=== PATIENT | female | born 2000 | race Caucasian/White ===

== ENCOUNTER 2021-10-21 17:07 | Observation (INO) | payer OTHER, SELFPAY ==
[2021-10-21 19:46] VITALS: PULSE 82; O2SAT 98
--- NOTE | 2021-10-21 19:58 | OBADM ---
This patient, Dyana Murguia, admitted to the OB room Labor/Delivery/Recovery 107 for observation. Patient/family oriented to hospital policies and general routines including ID bracelet, bed and alarms, visiting hours, pain management, procedures, bathroom and other care routines, personal items, smoking policy, room service/diet, and visiting hours. Patient/Family are encouraged to report perceived risks to care and to ask questions if they do not understand what they are told or what they should do.
[2021-10-21 20:20] LABS: Appearance Urine Clear (Clear); Bilirubin Urine Negative (Negative); Blood Urine Negative (Negative); Color Urine Yellow (Yellow); Glucose Urine UA Negative (Negative); Ketones Urine Negative (Negative); Leukocyte Esterase Ur Trace LEU/UL (Negative); Nitrate Urine Negative (Negative); Protein Urine Negative (Negative); Urobilinogen Urine 0.2 mg/dL (<2.0); pH Urine 6.5 (5.0-9.0)
[2021-10-21 20:27] LABS: Bacteria Urine Trace /hpf; Mucus Urine Rare /lpf; Squamous Epithelial Cell Urine Many /hpf (Few); WBC Urine 0-3 /hpf
[2021-10-21 20:28] LABS: Add Urine Microscopic? YES
--- NOTE | 2021-11-18 08:35 | P.PNOB_ITS ---
OB - Triage/Final Diagnosis Visit Information Comments/Additional reasons for admission: I have assessed the risk for this patient, Dyana Murguia, and determined that she would benefit from observation care. Evaluation Laboratory results: Laboratory Tests 10/21/21 20:03 Urine Color Yellow Urine Appearance Clear Urine pH 6.5 Ur Specific [place] 1.020 Urine Protein Negative Urine Glucose (UA) Negative Urine Ketones Negative Ur Blood (Man) Negative Urine Nitrate Negative Urine Bilirubin Negative Urine Urobilinogen 0.2 Leukocyte Esterase Rfl Trace H Urine RBC 3-5 H Urine WBC 0-3 Ur Squamous Epith Cells Many H Urine Bacteria Trace Urine Mucus Rare Final Diagnosis (1) Back pain affecting : Code(s): O99.891 - Other specified diseases and conditions complicating ; M54.9 - Dorsalgia, unspecified Status: Acute
== END 2021-10-21 20:10 | disposition home or self-care (01) ==
PROVIDERS: Admitting Provider Student in an Organized Health Care Education/Training Program; Visit Provider Student in an Organized Health Care Education/Training Program
DX: O26.899 Other specified pregnancy related conditions, unspecified trimester (principal); M54.9 Dorsalgia, unspecified; Z3A.00 Weeks of gestation of pregnancy not specified
CPT/HCPCS: 81001; G0378; G0379

== ENCOUNTER 2021-11-07 15:07 | Inpatient (IN) | payer OTHER, SELFPAY ==
[2021-11-07] VITALS (75 sets, daily range): BP systolic 86–149; BP diastolic 45–104; PULSE 61–226; TEMP 36.3–36.7; O2SAT 97–100; BMI 35.1
--- NOTE | 2021-11-07 15:58 | LDADM ---
This patient, Dyana Murguia, was admitted to Labor/Delivery/Recovery 106 on 11/07/21 at 15:07. Plans for labor, pain management and were discussed with patient. Patient/family oriented to hospital policies and general routines including ID bracelet, bed and alarms, visiting hours, pain management, procedures, bathroom and other care routines, personal items, smoking policy, room service/diet and guest tray routines, infant security routines, and visiting hours. Patient/Family are encouraged to report perceived risks to care and to ask questions if they do not understand what they are told or what they should do. See OBIX for further documentation.
[2021-11-07 16:14] LABS: Basophils Percent Auto 0.2 % (0.2-1.2); Eosinophils Absolute Auto 0.3 K/mm3 (0-0.3); Eosinophils Percent Auto 2.8 % (0-4.4); Hematocrit 30.7 % (37.0-47.0); Hemoglobin 9.8 g/dL (12.0-15.0); Immature Granulocyte Absolute 0.03 K/mm3 (0.00-0.031); Immature Granulocyte Percent A 0.3 % (0-0.5); Lymphocytes Absolute Auto 1.51 K/mm3 (0.9-3.2); Lymphocytes Percent Auto 17.1 % (18.3-44.2); Mean Corpuscular HGB Conc 31.9 g/dl (32-36); Mean Corpuscular Hemoglobin 25.9 pg (26-34); Mean Corpuscular Volume 81.2 fl (80-100); Mean Platelet Volume 11.9 fl (7.4-10.4); Monocytes Absolute Auto 0.7 K/mm3 (0.1-0.6); Monocytes Percent Auto 7.6 % (2.6-8.5); Neutrophils Absolute Auto 6.4 K/mm3 (1.3-6.7); Platelet Count Result 230 k/mm3 (150-375); Red Blood Count 3.78 M/mm3 (4.2-5.4); Red Cell Distribution Width 13.6 % (11.5-14.5); White Blood Count 8.9 K/mm3 (4.5-10.0)
[2021-11-07 16:25] LABS: Alanine Aminotransferase 15 U/L (6-35); Albumin Level 3.5 g/dL (3.5-5.1); Alkaline Phosphatase 117 U/L (38-126); Anion Gap 2 mmol/L (8-16); Aspartate Amino Transferase 20 U/L (14-36); Bilirubin,Total 0.2 mg/dL (0.2-1.3); Blood Urea Nitrogen 10 mg/dL (7-17); Calcium 8.8 mg/dL (8.4-10.2); Carbon Dioxide 23 mmol/L (22-30); Chloride 108 mmol/L (98-107); Estimated CRCL calculation 116 ml/min; Estimated Glomerular Filt Rate > 60; Glucose 101 mg/dL (65-110); Potassium 3.7 mmol/L (3.4-5.0); Sodium 133 mmol/L (137-145)
[2021-11-07 16:37] LABS: Uric Acid 5.1 mg/dL (2.5-7.5)
[2021-11-07] MEDS: LACTATED RINGERS 1,000 ML 125 ML IV CONT ×2 (16:51→22:02)
[2021-11-07] MEDS: OXYTOCIN 30 UNITS/NS 500 ML 30 UNITS/500 ML BAG 6 UNITS IV CONT (16:52)
--- NOTE | 2021-11-07 17:39 | WPDANESEPP ---
Anes - Eval Pre Procedure Procedure: labor epidural Date/Time: 11/07/21 17:39 Surgeon: najma Pre Op Diagnosis: Labor Patient Data Age: 21 Gender: F Height: 1.6 m Weight: 90 kg Last Vital Signs Temp 36.7 C 11/07/21 16:52 Pulse 100 11/07/21 17:31 BP 118/51 L 11/07/21 17:31 O2 Del Method Room Air 11/07/21 15:57 Allergies Allergy/AdvReac Type Severity Reaction Status Date / Time No Known Allergies Allergy Unknown Verified 11/02/21 09:46 Home Medications Medication Instructions Recorded Confirmed Type albuterol sulfate 90 mcg/actuation 1 puff inhalation Q4H PRN 04/29/21 11/07/21 Rx aerosol inhaler shortness of breath or wheezing #6.7 grams prenat.vits,kemar,[id number] 1 tablet PO DAILY 04/29/21 11/07/21 History Laboratory Tests 11/07/21 11/07/21 11/07/21 15:55 15:55 15:55 WBC 8.9 K/mm3 K/mm3 (4.5-10.0) RBC 3.78 M/mm3 L M/mm3 (4.2-5.4) Hgb 9.8 g/dL L g/dL (12.0-15.0) Hct 30.7 % L % (37.0-47.0) MCV 81.2 fl fl (80-100) MCH 25.9 pg L pg (26-34) MCHC 31.9 g/dl L g/dl (32-36) RDW 13.6 % % (11.5-14.5) Plt Count 230 k/mm3 k/mm3 (150-375) MPV 11.9 fl H fl (7.4-10.4) Immature Gran % (Auto) 0.3 % % (0-0.5) Neut % (Auto) 72.0 % % (45.5-73.1) Lymph % (Auto) 17.1 % L % (18.3-44.2) Perry % (Auto) 7.6 % % (2.6-8.5) Eos % (Auto) 2.8 % % (0-4.4) Baso % (Auto) 0.2 % % (0.2-1.2) Lymph # (Auto) 1.51 K/mm3 K/mm3 (0.9-3.2) Perry # (Auto) 0.7 K/mm3 H K/mm3 (0.1-0.6) Eos # (Auto) 0.3 K/mm3 K/mm3 (0-0.3) Baso # (Auto) 0.0 K/mm3 K/mm3 (0.0-0.1) Abs Immat Gran (auto) 0.03 K/mm3 K/mm3 (0.00-0.031) Absolute Neuts (auto) 6.4 K/mm3 K/mm3 (1.3-6.7) Absolute Nucleated RBC 0.0 K/mm3 K/mm3 (0.0-0.012) Nucleated RBC % 0.0 % % (0.0-0.2) Sodium Potassium Chloride Carbon Dioxide Anion Gap BUN Creatinine Estim Creat Clear Calc Estimated GFR Glucose Uric Acid 5.1 mg/dL mg/dL (2.5-7.5) Calcium Total Bilirubin AST ALT Alkaline Phosphatase Total Protein Albumin RPR Pending Blood Type Antibody Screen 11/07/21 11/07/21 15:55 15:55 WBC RBC Hgb Hct MCV MCH MCHC RDW Plt Count MPV Immature Gran % (Auto) Neut % (Auto) Lymph % (Auto) Perry % (Auto) Eos % (Auto) Baso % (Auto) Lymph # (Auto) Perry # (Auto) Eos # (Auto) Baso # (Auto) Abs Immat Gran (auto) Absolute Neuts (auto) Absolute Nucleated RBC Nucleated RBC % Sodium 133 mmol/L L mmol/L (137-145) Potassium 3.7 mmol/L mmol/L (3.4-5.0) Chloride 108 mmol/L H mmol/L (98-107) Carbon Dioxide 23 mmol/L mmol/L (22-30) Anion Gap 2 mmol/L L mmol/L (8-16) BUN 10 mg/dL mg/dL (7-17) Creatinine 0.70 mg/dL mg/dL (0.7-1.0) Estim Creat Clear Calc 116 ml/min ml/min Estimated GFR > 60 (59 - ) Glucose 101 mg/dL mg/dL (65-110) Uric Acid Calcium 8.8 mg/dL mg/dL (8.4-10.2) Total Bilirubin 0.2 mg/dL mg/dL (0.2-1.3) AST 20 U/L U/L (14-36) ALT 15 U/L U/L (6-35) Alkaline Phosphatase 117 U/L U/L (38-126) Total Protein 7.0 g/dL g/dL (6.3-8.2) Albumin 3.5 g/dL g/dL (3.5-5.1) RPR Blood Type O Positive Antibody Screen Negative Patient hx anesthesia probl
[2021-11-07] MEDS: fentaNYL CITRATE INJ (*CRX) 100 MCG/2 ML VIAL 50 MCG IV PUSH (21:41)
--- NOTE | 2021-11-07 23:52 | PM.IMHP ---
H&P: HPI History of Present Illness Date/Time: 11/07/21 23:52 Chief Complaint: Leakage of fluid Narrative: Patient is a currently 39w gestation. LMP uncertain. Patient is dated by outside US at 7w gestation with KRYSTIAN 11/14/21. Patient reported leakage of fluid at approx. 2:00 p.m. Denies any contractions or vaginal bleeding. Reports good movement. Upon arrival to L&D, patient was noted to be grossly ruptured. Decision was made to admit to L&D. Review of Systems Review of Systems: All systems reviewed & are unremarkable except as noted in HPI and below Constitutional: Constitutional: Reports as per HPI and Reports no additional constitutional complaints Eyes: Eyes: Reports as per HPI and Reports no additional eye complaints ENT: Reports system reviewed and no additional complaints, except as documented and Reports as per HPI Cardiovascular: Cardiovascular: Reports as per HPI and Reports no additional cardiovascular complaints Respiratory: Respiratory: Reports as per HPI and Reports no additional respiratory complaints Gastrointestinal: Gastrointestinal: Reports as per HPI and Reports no additional gastrointestinal complaints Genitourinary: Genitourinary: Reports no additional female genitourinary complaints and Reports as per HPI Musculoskeletal: Musculoskeletal: Reports no additional musculoskeletal complaints and Reports as per HPI Integumentary/Breasts: Skin/Breast: Reports system reviewed and no additional complaints, except as docu and Reports as per HPI Neurologic: Reports system reviewed and no additional complaints, except as documented and Reports as per HPI Psychiatric: Psychiatric: Reports no additional psychiatric complaints and Reports as per HPI Endocrine: Endocrine: Reports no additional endocrine complaints and Reports as per HPI Hematologic/Lymphatic: Hematologic/Lymphatic: Reports no additional hematologic/lymphatic complaints and Reports as per HPI Allergic/Immunologic: Allergic/Immunologic: Reports no additional allergic/immunologic complaints and Reports as per HPI PMF Past Medical History Medical History History of 1 Mood disorder Family History Family History Other Adopted Social History Social History Smoking status: Never smoker Tobacco type: e-cigarettes/vaping Alcohol intake: former Alcohol use details: Socially on the weekends Substance use: current Substance use type: marijuana Last use: 10/08/21 Spiritual care concerns: No Meds Home Medications and Allergies Home Medications Medication Instructions Recorded Confirmed Type albuterol sulfate 90 mcg/actuation 1 puff inhalation Q4H PRN 04/29/21 11/07/21 Rx aerosol inhaler shortness of breath or wheezing #6.7 grams prenat.vits,kemar,[id number]-[id number] 1 tablet PO DAILY 04/29/21 11/07/21 History Allergies Allergy/AdvReac Type Severity Reaction Status Date / Time No Known Allergies Allergy Unknown Verified 11/02/21 09:46 Vital Signs Vital Signs - 24 hr 11/07/21 15:46 11/07/21 16:01 11/07/21 16:16 Temperature Pulse Rate 101 H 94 83 Blood Pressure 149/82 H 131/66 127/68 Pulse Oximetry Oxygen Delivery 11/07/21 16:31 11/07/21 16:46 11/07/21 17:01 Temperature Pulse Rate 110 H 95 Blood Pressure 131/104 H 114/69 119/55 L Pulse Oximetry Oxygen Delivery 11/07/21 16:52 11/07/21 17:16 11/07/21 17:31 Temperature 36.7 C Pulse Rate 95 100 Blood Pressure 120/64 118/51 L Pulse Oximetry Oxygen Delivery 11/07/21 17:46 11/07/21 16:00 11/07/21 18:01 Temperature 36.6 C Pulse Rate 82 102 H Blood Pressure 111/60 107/64 Pulse Oximetry Oxygen Delivery 11/07/21 18:16 11/07/21 18:32 11/07/21 18:46 Temperature Pulse Rate 122 H 88 97 Blood Pressure 102/78 108/60 105
--- NOTE | 2021-11-07 23:52 | WPDHPUPDATE1 ---
History and Physical Update Update Date/Time: 11/07/21 23:52 History and Physical has been reviewed, including an updated exam of the patient. There are NO changes in the patient's condition. Risks, benefits, and alternatives have been discussed and questions answered. Patient agrees to proceed with procedure.
--- NOTE | 2021-11-07 23:52 | PM.OBPNLAB ---
Pain Control Date/time seen: 11/07/21 23:52 Patient doing well. Comfortable s/p epidural. SVE -/-2. Forebag ruptured. Clear fluid noted. EFM category 1. Continue pitocin. Continue EFM and toco.
[2021-11-08] VITALS (126 sets, daily range): BP systolic 89–140; BP diastolic 45–107; PULSE 57–114; RESP 16–18; TEMP 36.2–37; O2SAT 95–100
[2021-11-08] MEDS: SODIUM CHLORIDE 0.9% IV 300 ML 600 ML I-UTERINE (01:27)
[2021-11-08] MEDS: OXYTOCIN 30 UNITS/NS 500 ML 30 UNITS/500 ML BAG 125 UNITS IV CONT (07:09)
--- NOTE | 2021-11-08 07:14 | PM.OBPRVD ---
OB - Delivery Note Procedure Delivery date: 11/08/21 Procedure: The patient is a 21-year-old now who presented to labor and delivery on the afternoon of 11/07/2021 at 39 weeks gestation with PROM. Patient reported leakage of clear fluid at approximately 2:00 p.m. Upon arrival to labor and delivery, patient was noted to be ruptured. Decision was made to admit patient for induction of labor. Initial cervical exam was approximately 1 cm dilated. Induction labor was started with Pitocin. Pitocin was slowly titrated throughout the remainder of the afternoon and evening. Patient became increasingly uncomfortable and requested an epidural for pain management which was placed without difficulty. A forebag was noted and artificially ruptured. Shortly afterwards, variable decelerations were noted on EFM. An IUPC was placed and an amnioinfusion was started. tracing improved. Pitocin was continued and patient was noted to be fully dilated at 5:35 a.m. Patient was encouraged to push and found to be pushing well. She was prepped and draped for delivery. At 6:42 a.m., patient delivered head atraumatically and without difficulty in OSVALDO presentation. Occiput restituted to maternal right side. A nuchal cord x1 was noted, however, unable to be reduced. With subsequent push, the infant's neck, shoulders, and rest of body delivered without difficulty. Nuchal cord was reduced. Infant's nose and mouth were suctioned with bulb suction. Infant was placed on maternal abdomen where care was assumed by awaiting nursing staff. was crying spontaneously. Delayed cord clamping was performed for approximately 60 seconds. The cord was clamped and cut. A segment of cord was collected for cord gases. Cord blood was collected. The placenta was delivered spontaneously and intact. Uterine fundus was noted to be firm with massage. On inspection, no lacerations were noted. Estimated blood loss for entire delivery was 150 cc. The infant was a live-born male infant, Apgars 8 and 9, weighing 7 lbs. 15 oz. Both mother and baby doing well at end of delivery. Induction method: Per Pitocin Protocol Delivery monitor: External FHT, External Uterine and Internal Uterine Route of delivery: Laceration Description: None Specimen: Yes (cord blood and cord gases) Quantitative Blood Loss (ml): 150 Anesthesia type: Epidural Disposition: Floor Complications: No immediate complications Baby Date of : 11/08/21 Time of : 06:42 Weeks of gestation at delivery: 39 (39.1) Infant gender: Male Weight (pounds): 7 Weight (ounces): 15 presentation: vertex position: Right Occiput Anterior Placenta delivery description: Spontaneous Cord Vessel Description: 3 Vessels, Nuchal Cord (x1) and Delayed Cord Clamping (x60s) score one minute: 8 score five minutes: 9 AMG Delivery Billing Delivery Delivery: Delivery Charge
[2021-11-08] MEDS: IBUPROFEN 600 MG TABLET PO ×3 (09:06→21:37)
[2021-11-08] MEDS: POLYSACCHARIDE IRON COMPLEX 150 MG CAPSULE PO ×2 (10:03→17:49)
[2021-11-08] MEDS: DOCUSATE SODIUM 100 MG CAPSULE PO ×2 (10:03→17:49)
[2021-11-08] MEDS: MULTIVIT/MIN/PREN/FOL AC/IRON TABLET 1 TAB PO (10:03)
--- NOTE | 2021-11-08 14:05 | PC.NURSE ---
[id number] Introductions were made, then consulted with patient to assess needs related to . Mother led the conversation with her experience feeding her so far. Visitor is holding infant and another visitor verbalizes support to mother. Encouraged understanding of the benefits of skin to skin (unwrapping infant and placing vertically on her chest), responsive feeding and how to watch for early feeding signs, frequency of feeding on demand about every 8-12 times in 24 hours (every 2-3 hours), milk production, duration of feeding, signs of adequate intake/output and how to record on the feeding sheet. Breast pump provided earlier from primary RN. Instructions given on cleaning, care, usage, that there should be no pain, pumping schedule for milk production, collection, and storage of human milk. Parents are encouraged to record pumping schedule on the feeding sheet. Patient was assessed for correct placement, flange size, to pump for comfort and nipple stretching/stimulation for adequate milk production every 3 hours (8 times in 24 hours). Resources used to facilitate learning were used with the mom and baby guide. Mother voiced understanding of responsive feedings, stimulating with skin to skin, talking to infant to encourage if it has been 2 -3 hours since the start of the last , to call if does not latch or there is discomfort with . Mother is unsure if she wants to work on latching to breast and states she may just pump and feed. Reported to the primary RN.
[2021-11-08 14:41] LABS: Rapid Plasma Reagin Non-Reactive (NonReactive)
[2021-11-08] MEDS: ACETAMINOPHEN 325 MG TABLET 650 MG PO (17:11)
[2021-11-09] VITALS: BP 111/50; PULSE 74; RESP 16; TEMP 36.7
[2021-11-09 04:00] VITALS: BP 134/84; PULSE 84; RESP 18; TEMP 36.6
[2021-11-09] MEDS: IBUPROFEN 600 MG TABLET PO ×2 (05:06→13:02)
[2021-11-09 05:24] LABS: Hematocrit 28.9 % (37.0-47.0); Hemoglobin 9.5 g/dL (12.0-15.0)
[2021-11-09 08:00] VITALS: BP 124/65; PULSE 70; RESP 16; TEMP 36.5; O2SAT 99
[2021-11-09 09:00] VITALS: PULSE 70; RESP 16; O2SAT 99
--- NOTE | 2021-11-09 09:01 | PM.OBPNVD ---
OB - PN: Subj Subjective Date/time seen: 11/09/21 09:01 Patient doing well this AM. Reports mild cramping. Pain reasonably controlled with medication. Minimal lochia. Ambulating well. Voiding without difficulty. OB - PN: Obj Data Labs CBC & Chem 7: 11/09/21 05:05 11/07/21 15:55 Labs: Laboratory Results - last 24 hr 11/07/21 11/09/21 15:55 05:05 Hgb 9.5 L Hct 28.9 L RPR Non-reactive OB - PN A/P Assessment and Plan (1) Normal spontaneous vaginal delivery: Code(s): O80 - Encounter for full-term uncomplicated delivery Status: Acute Assessment and Plan: PPD#1 doing well continue routine care dc home today in stable condition, pending infant clearance emergency precautions reviewed f/u in office in 4-6 weeks for visit Time Spent With Patient Time: Total time spent is greater than 50% in coordination of care (as documented) at patient's floor/unit and/or counseling patient: Exam Const: General: cooperative, healthy appearing, comfortable and no acute distress GI: Inspection: non-distended GI Palp: Yes Soft to palpation and No Tenderness to palpation present (GI) Other: fundus firm below umbilicus Extrem: Right lower extremity: no edema Left lower extremity: no edema Other: no calf tenderness
--- NOTE | 2021-11-09 09:04 | PM.OBDSVD ---
DS: Admitting Diagnosis Discharge Date 11/09/21 Admitting Diagnosis IUP at 39w PROM OB - DS: Summary OB Procedures : None OB Procedures Intrapartum: Spontaneous Vag Delivery OB Procedures: : None Time Spent with Patient Time attestation: Total time spent providing and/or coordinating discharge services: DS: Data Data Completed and Pending Labs on day of discharge: Labs from last 24 hours 11/09/21 11/07/21 05:05 15:55 Hgb 9.5 L Hct 28.9 L RPR Non-reactive Discharge Plan Discharge Attending physician on discharge: Yadira Lucio Discharging Clinician: Yadira Lucio Anticipated Discharge Date/Time: 11/09/21 09:04 Patient Disposition: Home, Self-Care Activity: as tolerated and pelvic rest Diet: regular Discharge Instructions: Call office ([phone]) to schedule a visit in 4-6 weeks. You may take Ibuprofen 600mg every 6 hours as needed for pain. Pain medication may make you constipated. It may be helpful to take an [id number]-qivefqa stool softener, such as Colace and/or Senokot, along with the pain medication to help lessen constipation. Call office or go to ED for pain not controlled with medication, headache, chest pain, shortness of breath, fever, chills, persistent nausea or vomiting, severe abdominal pain, heavy vaginal bleeding >2 pads/hour, foul vaginal discharge or odor, or problems with your breasts. Patient Instructions: Antibiotic Form Stand Alone Forms: General Discharge Information Follow-up/Referrals: Yadira Lucio MD [Physician] - Discharge Medications: Continued prenat.vits,kemar,[id number]-puoir Tablet 1 tablet PO DAILY albuterol sulfate 90 mcg/actuation HFA aerosol inhaler 1 puff inhalation Q4H PRN (Reason: shortness of breath or wheezing) Qty: 6.7 0RF Date of admission: 11/07/21 15:07 Primary Care Provider: PHYSICIAN,SENIOR ELECTRONICS DESIGN ENGINEER Admitting Provider: Yadira Lucio Attending physician on admission: Yadira Lucio Condition: Stable
[2021-11-09] MEDS: POLYSACCHARIDE IRON COMPLEX 150 MG CAPSULE PO (09:50)
[2021-11-09] MEDS: MULTIVIT/MIN/PREN/FOL AC/IRON TABLET 1 TAB PO (09:50)
[2021-11-09] MEDS: DOCUSATE SODIUM 100 MG CAPSULE PO (09:50)
[2021-11-09] MEDS: ACETAMINOPHEN 325 MG TABLET 650 MG PO (09:50)
--- NOTE | 2021-11-09 10:25 | WPDANLDPN2 ---
Anes-Prog Note L&D Date/Time: 11/09/21 10:25 Comfortable throughout: labor and delivery Neuraxial method: epidural Epidural/Spinal procedure site: clean & non-tender Neuro status: Neuro function grossly intact. Cardiovascular status: normal Respiratory status: normal Airway patency: baseline Mental status: baseline Post-Op hydration status: normal Vital Signs: Last Vital Signs Temp 36.5 C 11/09/21 08:00 Pulse 70 11/09/21 08:00 Resp 16 11/09/21 08:00 BP 124/65 11/09/21 08:00 Pulse Ox 99 11/09/21 08:00 O2 Del Method Room Air 11/09/21 04:00 Pain score (VAS): 05/31 I/O: Intake & Output 11/08/21 11/09/21 11/09/21 23:59 07:59 15:59 Intake Total 500 350 Balance 500 350 Patient feedback: Patient satisfied with anesthetic care.
--- NOTE | 2021-11-09 14:25 | PC.NURSE ---
Patient viewed the discharge video Mother & Baby Care, The First Two Weeks . Patient was given the opportunity and encouraged to ask questions. Patient verbalized understanding of information shared and has been given the mother/baby guide for home reference.
--- NOTE | 2021-11-09 14:47 | PCCCNOTE ---
Care Coordination Consult: Met with pt. today. This is pt.'s first child. FOB is Kam. Pt. has all necessary supplies for baby at home including a crib, carseat, clothing, diapers, formula etc. Pt. has a supportive family. Pt. reports she has already applied for WIC services, but was agreeable to resources to assist if needed. Pt. denies any further case management needs. [facility] will transport pt. home this afternoon.
[2021-11-10 08:50] VITALS: BP 121/71; PULSE 77; RESP 20; TEMP 36.6; O2SAT 99
== END 2021-11-09 15:22 | disposition home or self-care (01) | DRG 560 ==
LOC: ANHLDR 15:45 → ANHOB2 11-08 09:36
PROVIDERS: Admitting Provider Obstetrics & Gynecology; Visit Provider Student in an Organized Health Care Education/Training Program
DX: O42.02 Full-term premature rupture of membranes, onset of labor within 24 hours of rupture (principal); Z37.0 Single live birth; Z3A.39 39 weeks gestation of pregnancy; O69.81X0 Labor and delivery complicated by cord around neck, without compression, not applicable or unspecified; O36.8330 Maternal care for abnormalities of the fetal heart rate or rhythm, third trimester, not applicable or unspecified
CPT/HCPCS: 36415; 80053; 84112; 84550; 85014; 85018; 85025; 86592; 86850; 86900; 86901; A9270; J2590; J2795; J3010; J7030; J7120

== ENCOUNTER 2022-06-28 18:32 | Emergency (ER) | payer OTHER, SELFPAY ==
[2022-06-28 18:40] VITALS: BP 135/72; PULSE 89; RESP 16; TEMP 37.3; O2SAT 99
--- NOTE | 2022-06-28 19:02 | ED.URI ---
HPI - URI/Sore Throat General Chief Complaint: Upper Respiratory Infection Stated Complaint: sore throat History of Present Illness HPI Narrative: 21 y/o female presented for c/o sore throat, sinus drainage, and fever/chills. Onset 10 days. Denies shortness of breath, wheezing, nausea, vomiting, diarrhea. She has not taking anything for symptoms. She denies sick contacts. Related Data Allergies Allergy/AdvReac Type Severity Reaction Status Date / Time No Known Allergies Allergy Unknown Verified 06/28/22 18:36 Review of Systems Review of Systems: CONSTITUTIONAL: Denies body aches EYES: Denies visual changes, redness, or discharge. ENT: Denies otalgia. CARDIOVASCULAR: Denies chest pain, palpitations, or edema. RESPIRATORY: Denies dyspnea. GASTROINTESTINAL: Denies abdominal pain, nausea, vomiting, or diarrhea. SKIN: Denies rash, itching, or wounds. MUSCULOSKELETAL: Denies back pain, joint pain, or myalgia. NEUROLOGIC: Denies headache PMFSH Past Medical History Medical History History of 1 Mood disorder Normal spontaneous vaginal delivery Family History Family History Other Adopted Social History Social History Smoking status: Never smoker Tobacco type: e-cigarettes/vaping Alcohol intake: former Alcohol use details: Socially on the weekends Substance use: current Substance use type: marijuana Last use: 10/08/21 Spiritual care concerns: No Exam Narrative: GENERAL: mildly Ill-appearing, no acute distress. EYES: conjunctivae clear ENT: Mucous membranes moist. TM pearly hernandez with normal light reflex bilaterally; no tragal tenderness. Oropharynx erythematous without lesions. Tonsils enlarged 2+ and without exudate. No drooling, no hoarseness, no trismus, uvula midline. No tripod positioning, hot potato voice, or soft palate swelling. NECK: Supple. No lymphadenopathy CHEST: Clear to auscultation, breath sounds equal. No respiratory distress, speaks in full sentences. HEART: Regular rate and rhythm. No murmur heard. SKIN: Warm, dry, no rash. NEURO: Alert and oriented x3. Course Course Emergency Course: Patient is aware of diagnosis, understands and agrees to treatment plan. Anticipatory guidance given. Patient agrees to follow-up as directed and is aware of reasons to seek care at the emergency department. Portions of this record may have been created with voice recognition software Level of Care: Express Care Visit Vital Signs Vital signs: Vital Signs Temperature 99.2 F 06/28/22 18:40 Pulse Rate 89 06/28/22 18:40 Respiratory Rate 16 06/28/22 18:40 Blood Pressure 135/72 06/28/22 18:40 Pulse Oximetry 99 06/28/22 18:40 Oxygen Delivery Room Air 06/28/22 18:40 Temperature 99.2 F 06/28/22 18:40 Pulse Rate 89 06/28/22 18:40 Respiratory Rate 16 06/28/22 18:40 Blood Pressure 135/72 06/28/22 18:40 Pulse Oximetry 99 06/28/22 18:40 Oxygen Delivery Room Air 06/28/22 18:40 MDM - URI/Sore Throat MDM Narrative Medical decision making narrative: strep result reviewed with pt. Advise supportive treatments. Patient is appropriate for outpatient treatment and follow-up. Differential Diagnosis Differential diagnosis: Likely upper respiratory infection, viral infection and pharyngitis Discharge Plan Discharge Clinical Impression: Pharyngitis Patient Disposition: Home, Self-Care Condition: Stable Instructions: Antibiotic Form, Pharyngitis (ED) Additional Instructions: Rapid strep swab was negative today You will be notified in a few days if the culture comes back positive for strep, and appropriate antibiotics will be called in at that time. if symptoms are due to a viral illness, it is not treated with antibiotics. Viral symptoms can be present for u
== END 2022-06-28 19:17 | disposition home or self-care (01) ==
PROVIDERS: Emergency Provider Nurse Practitioner Family
DX: J02.9 Acute pharyngitis, unspecified (principal)
CPT/HCPCS: 87081; 87147; 87880; 99213; G0463

== ENCOUNTER 2022-08-17 02:51 | Emergency (ER) | payer OTHER, SELFPAY ==
[2022-08-17 02:53] VITALS: BP 142/85; PULSE 128; RESP 24; TEMP 36.7; O2SAT 99
--- NOTE | 2022-08-17 03:37 | PC.NURSE ---
patient stated she does not think she should have to wait to get help and said she was going someplace else
== END 2022-08-17 03:47 | disposition left against medical advice (07) ==
PROVIDERS: PCP Family Medicine
DX: R06.02 Shortness of breath (principal)
CPT/HCPCS: 99199

== ENCOUNTER 2023-03-01 13:00 | Emergency (ER) | payer OTHER, SELFPAY ==
[2023-03-01 13:13] VITALS: BP 138/84; PULSE 116; RESP 18; TEMP 37.3; O2SAT 96
--- NOTE | 2023-03-01 13:32 | ED.URI ---
HPI - URI/Sore Throat General Chief Complaint: Upper Respiratory Infection Stated Complaint: SOB/Ear Irritation Time Seen by Provider: 03/01/23 13:32 Source: patient Mode of arrival: ambulatory Limitations: no limitations History of Present Illness HPI Narrative: 22-year-old female presents with complaint of right ear pain for 3 days. Patient also reports nasal congestion, runny nose, postnasal drainage, cough, shortness of breath. Patient reports history of asthma. Has been using her inhaler as prescribed. Last time her asthma is bothering her she was given prednisone and it helped. Has appointment with sheriff's detective in the next month to further evaluate her asthma treatment. All systems reviewed and negative except as noted above. Related Data Allergies Allergy/AdvReac Type Severity Reaction Status Date / Time No Known Allergies Allergy Unknown Verified 03/01/23 13:17 Review of Systems Review of Systems: CONSTITUTIONAL: Denies fever, chills, or sweats. Reports fatigue. EYES: Denies visual changes, redness, or discharge. ENT: Reports rhinorrhea, congestion, sore throat, right ear pain. CARDIOVASCULAR: Denies chest pain, palpitations, or edema. RESPIRATORY: Reports cough and dyspnea. GASTROINTESTINAL: Denies abdominal pain, nausea, vomiting, or diarrhea. GENITOURINARY: Denies dysuria or hematuria. SKIN: Denies rash or itching. MUSCULOSKELETAL: Denies back pain, joint pain, or myalgia. NEUROLOGIC: Denies headache, numbness, or weakness. PSYCHIATRIC: Denies anxiety or depression. All other systems reviewed are negative, except as documented in HPI. [facility] Past Medical History Medical History History of 1 Mood disorder Normal spontaneous vaginal delivery Family History Family History Other Adopted Social History Social History Smoking status: Never smoker Tobacco type: e-cigarettes/vaping Alcohol intake: former Alcohol use details: Socially on the weekends Substance use: current Substance use type: marijuana Last use: 10/08/21 Spiritual care concerns: No Comments At time of signature, agree with nursing past medical, surgical, social and family history. There is no relevant family history pertinent to the presenting complaint. Exam Narrative: GENERAL: This is a well-nourished, well-developed patient, in no apparent distress. HEAD: normocephalic, atraumatic. EYES: PERRL. Sclera clear/white. Vision is grossly intact. EARS: External ears normal, auditory canals clear and without drainage, TMs normal without perforation. Hearing grossly intact. NOSE: External nose normal with clear nasal drainage, erythema and swelling to both nares. THROAT: Mucous membranes moist, Clear postnasal drainage. NECK: Neck supple, non-tender without lymphadenopathy, masses or thyromegaly. CARDIOVASCULAR: Regular rate and rhythm without murmurs, gallops, or rubs. RESPIRATORY: Mild expiratory wheeze throughout all lung [place]. No rales, or rhonchi. SKIN: warm, Dry, intact with no suspicious lesions or rash, good texture and turgor. NEURO: awake, alert, and oriented to person, place and time. There were no obvious focal neurologic abnormalities. EXTREMITIES: No joint tenderness, effusion, or edema noted. Course Course Level of Care: Express Care Visit Vital Signs Vital signs: Vital Signs Temperature 37.3 C 03/01/23 13:13 Pulse Rate 116 H 03/01/23 13:13 Respiratory Rate 18 03/01/23 13:13 Blood Pressure 138/84 03/01/23 13:13 Pulse Oximetry 96 03/01/23 13:13 Oxygen Delivery Room Air 03/01/23 13:13 Temperature 37.3 C 03/01/23 13:13 Pulse Rate 116 H 03/01/23 13:13 Respiratory Rate 18 03/01/23 13:13 Blood Pressure 138/84 03/01/23 13:13 Pulse Oximetry 96 03/01/23 13:13 Oxygen Del
== END 2023-03-01 13:48 | disposition home or self-care (01) ==
PROVIDERS: Emergency Provider Nurse Practitioner Family; PCP Nurse Practitioner Family
DX: H66.91 Otitis media, unspecified, right ear (principal); J45.901 Unspecified asthma with (acute) exacerbation
CPT/HCPCS: 99213; G0463

== ENCOUNTER 2024-02-06 10:37 | Emergency (ER) | payer OTHER, SELFPAY ==
[2024-02-06 10:46] VITALS: BP 131/84; PULSE 91; RESP 16; TEMP 37.1; O2SAT 99
--- NOTE | 2024-02-06 10:51 | ED.NAVMDI ---
HPI - Nausea/Vomiting/Diarrhea General Chief complaint: Nausea/Vomiting/Diarrhea Stated complaint: Sinus Time Seen by Provider: 02/06/24 10:50 Source: patient Mode of arrival: ambulatory Limitations: no limitations History of Present Illness HPI Narrative: Aguilar Saleem is a 23-year-old female patient presenting to the clinic today with complaints nausea, vomiting, and diarrhea. She reports that symptoms started yesterday after eating some chicken strips and Danish fries. She reports she had 3 episodes of diarrhea last night. She had 1 episode of vomiting this morning. States she vomited at work so her boss sent her home and stated that she needed a work note to come back. She denies any fever, chills, body aches, or blood in her stool. States that she only has abdominal cramping prior to having diarrhea. Last menstrual period was this week Related Data Allergies Allergy/AdvReac Type Severity Reaction Status Date / Time No Known Allergies Allergy Unknown Verified 03/01/23 13:17 Review of Systems Review of Systems: Pertinent positives per HPI. Patient denies any fever, chills, rash, headache, visual changes, dizziness, cough, runny nose, sore throat, shortness of breath, chest pain, palpitations, constipation, or any urinary issues. [facility] Past Medical History Medical History History of 1 Mood disorder Normal spontaneous vaginal delivery Family History Family History Other Adopted Social History Social History Smoking status: Never smoker Tobacco type: e-cigarettes/vaping Alcohol intake: former Alcohol use details: Socially on the weekends Substance use: current Substance use type: marijuana Last use: 10/08/21 Spiritual care concerns: No Comments At the time of my signature, I reviewed and agree with the nursing past medical, surgical, social, and family history. There is no relevant family history pertinent to the patient complaint. Exam Narrative: General: Well-developed, well nourished, in no apparent distress. Head: Normocephalic, atraumatic. Cardio: Regular rate and rhythm, s1 and s2 normal, no murmur appreciated. Resp: Clear to auscultation bilaterally, no rhonchi, rales, wheezing or rubs. Abdomen: Soft, pliable, bowel sounds present in all quadrants, mild tender to palpation over the lower abdomen, no organomegly, no CVAT tenderness. Course Course Emergency Course: Portions of this record may have been created with voice recognition software. Level of Care: Express Care Visit Vital Signs Vital signs: Vital Signs Temperature 37.1 C 02/06/24 10:46 Pulse Rate 91 02/06/24 10:46 Respiratory Rate 16 02/06/24 10:46 Blood Pressure 131/84 02/06/24 10:46 Pulse Oximetry 99 02/06/24 10:46 Oxygen Delivery Room Air 02/06/24 10:46 Temperature 37.1 C 02/06/24 10:46 Pulse Rate 91 02/06/24 10:46 Respiratory Rate 16 02/06/24 10:46 Blood Pressure 131/84 02/06/24 10:46 Pulse Oximetry 99 02/06/24 10:46 Oxygen Delivery Room Air 02/06/24 10:46 Vital signs reviewed MDM - Nausea/Vomiting/Diarrhea MDM Narrative Medical decision making narrative: At the time of visit patient is resting comfortably on the exam table. Patient appears to be nontoxic. Plan: I suspect patient has gastroenteritis. Prescription for Zofran was sent to the pharmacy. Note was given. Supportive measures were discussed with the patient and they voiced understanding discharge instructions and agrees to treatment plan. Return precautions reviewed Differential Diagnosis Differential diagnosis: Likely traveler's diarrhea, food poisoning, gastroenteritis, clostridium difficile infection, drug-induced nausea and vomiting, dehydration and other (COVID) Discharge Plan Discharge Clinical Impressio
== END 2024-02-06 11:06 | disposition home or self-care (01) ==
PROVIDERS: Emergency Provider Nurse Practitioner Family; PCP Nurse Practitioner Family
DX: K52.9 Noninfective gastroenteritis and colitis, unspecified (principal)
CPT/HCPCS: 99213; G0463

== ENCOUNTER 2024-04-16 11:54 | Emergency (ER) | payer OTHER, SELFPAY ==
[2024-04-16 12:02] VITALS: BP 140/77; PULSE 86; RESP 18; TEMP 36.6; O2SAT 97
--- NOTE | 2024-04-16 12:17 | ED.URI ---
HPI - URI/Sore Throat General Chief Complaint: Upper Respiratory Infection Stated Complaint: Sinus Time Seen by Provider: 04/16/24 12:10 Source: patient Mode of arrival: ambulatory Limitations: no limitations History of Present Illness HPI Narrative: Ole is a 23-year-old female patient presenting to the clinic today with complaints of sinus congestion, sore throat, and cough. Denies chest pain or shortness of breath. Denies any fevers, chills, body aches. She works at a local daycare. MD elicited complaint: cough, sore throat and nasal congestion Related Data Allergies Allergy/AdvReac Type Severity Reaction Status Date / Time No Known Allergies Allergy Unknown Verified 04/16/24 12:10 Review of Systems Review of Systems: Pertinent positives per HPI. Patient denies any fever, chills, rash, headache, visual changes, dizziness, shortness of breath, chest pain, palpitations, nausea, vomiting, diarrhea, constipation, abdominal pain, or any urinary issues. [facility] Past Medical History Medical History History of 1 Mood disorder Normal spontaneous vaginal delivery Family History Family History Other Adopted Social History Social History Smoking status: Never smoker Tobacco type: e-cigarettes/vaping Alcohol intake: former Alcohol use details: Socially on the weekends Substance use: current Substance use type: marijuana Last use: 10/08/21 Spiritual care concerns: No Comments At the time of my signature, I reviewed and agree with the nursing past medical, surgical, social, and family history. There is no relevant family history pertinent to the patient complaint. Exam Narrative: General: Well-developed, well nourished, in no apparent distress Head: Normocephalic, atraumatic Eyes: Pupils equally round and reactive to light bilaterally, EOM intact, sclera and conjunctive clear, no discharge, lids normal Ears: TMs intact and clear, ear canals clear, no drainage, grossly hearing normal. Nose: Nares patent, clear nasal discharge, no inflammation, no sinus tenderness. Mouth: Oral pharynx red without lesions or masses, good dentition, MMM. Neck: Supple, trachea midline, no enlargement of anterior or posterior cervical nodes, no thyroid masses or goiter palpable. Cardio: Regular rate and rhythm, s1 and s2 normal, no murmur appreciated. Resp: Clear to auscultation bilaterally, no rhonchi, rales, wheezing or rubs Course Course Emergency Course: Portions of this record may have been created with voice recognition software. Level of Care: Express Care Visit Vital Signs Vital signs: Vital Signs Temperature 36.6 C 04/16/24 12:02 Pulse Rate 86 04/16/24 12:02 Respiratory Rate 18 04/16/24 12:02 Blood Pressure 140/77 04/16/24 12:02 Pulse Oximetry 97 04/16/24 12:02 Oxygen Delivery Room Air 04/16/24 12:02 Temperature 36.6 C 04/16/24 12:02 Pulse Rate 86 04/16/24 12:02 Respiratory Rate 18 04/16/24 12:02 Blood Pressure 140/77 04/16/24 12:02 Pulse Oximetry 97 04/16/24 12:02 Oxygen Delivery Room Air 04/16/24 12:02 Vital signs reviewed MDM - URI/Sore Throat MDM Narrative Medical decision making narrative: At the time of visit patient is resting comfortably on the exam table. Patient appears to be nontoxic. Labs: COVID, influenza, and strep test were performed. All testing was negative. We will send strep for culture. Plan: I suspect patient has URI/pharyngitis. Supportive measures were discussed with the patient and they voiced understanding discharge instructions and agrees to treatment plan. Return precautions reviewed Differential Diagnosis Differential diagnosis: Likely upper respiratory infection, otitis media, sinusitis, viral infection, bronchitis, influenza, pharyngitis and other (COVID) Lab Data Labs: Lab Results 04/16/24 04/16/24 Range/Units 12:14 12:14 POC Influenza A Ag Negative (Negative) POC Influenza B Ag Negative (Negative) POC SARS CoV-2 Ag Negative (Negative) POC Grp A Strep Screen Negative Negative (Negative) Discharge Plan Discharge Clinical Impression: URI (upper respiratory infection), Pharyngitis Patient Disposition: Home, Self-Care Condition: Stable Instructions: Antibiotic Form, Pharyngitis (ED), Cold Symptoms (ED) Additional Instructions: May take DayQuil/NyQuil for cold/flu symptoms Increase fluids and stay well hydrated Tylenol/motrin for pain/fever Flonase and OTC antihistamines as directed Vicks vapor rub to open sinuses Sinus rinses for congestion Cepacol spray, cough drops, throat lozenges, warm tea with honey/lemon, gargle salt water to soothe throat BRAT diet for diarrhea Clear liquids x 24 hours then advance as tolerated for nausea/vomiting Go to the ED if you develop a worsening in your condition- high fever not controlled by Tylenol or Motrin, dehydration, weakness, lethargy, shortness of breath, or chest pain. Follow up with your PCP in 3-5 days if symptoms persist. Prescriptions: No Action albuterol sulfate 90 mcg/actuation HFA aerosol inhaler 1 puff inhalation Q4H PRN (Reason: shortness of breath or wheezing) Qty: 6.7 0RF Follow-up/Referrals: Briseyda,XANDER Canales [Primary Care Provider] - Stand Alone Forms: Work/School Release IP Time of Disposition: 12:35 Quality NIHSS Nursing Documentation ED NIHSS nursing documentation: reviewed/agree
[2024-04-16 12:31] LABS: EDSTREPNEGPOS1 Negative (Negative)
[2024-04-16 12:34] LABS: EDCOVIDSCREEN Negative (Negative)
[2024-04-16 12:35] LABS: EDINFLUASCREEN Negative (Negative); EDINFLUBSCREEN Negative (Negative); EDSTREPNEGPOS1 Negative (Negative)
== END 2024-04-16 12:40 | disposition home or self-care (01) ==
PROVIDERS: Emergency Provider Nurse Practitioner Family; PCP Nurse Practitioner Family
DX: J06.9 Acute upper respiratory infection, unspecified (principal); Z20.822 Contact with and (suspected) exposure to COVID-19
CPT/HCPCS: 87081; 87426; 87804; 87880; 99213; G0463